=== PATIENT | male | born 1985 | race Caucasian/White ===

== ENCOUNTER 2017-02-08 20:50 | Emergency (ER) | payer OTHER ==
[~2017-02-08] VITALS: Ht 185.4 cm; Wt 128.4 kg
[2017-02-08] MEDS ORDERED: VENTOLIN HFA18 GM INH (20:59)
[2017-02-08] MEDS ORDERED: FLOVENT DISKUS50 MCG INH (20:59)
[2017-02-08] MEDS ORDERED: NAFCILLIN SODIUM2 GM INJ (21:00)
[2017-02-08] MEDS ORDERED: GENTAMICIN IV (21:00)
[2017-02-08] MEDS ORDERED: TYLENOL325 MG PO (21:01)
== END 2017-02-08 22:49 | disposition home or self-care (01) ==
LOC: ED 20:50
DX: I33.0 Acute and subacute infective endocarditis (principal); F41.1 Generalized anxiety disorder; Z87.891 Personal history of nicotine dependence; Z95.2 Presence of prosthetic heart valve; Z79.899 Other long term (current) drug therapy
CPT/HCPCS: 99283